=== PATIENT | female | born 1990 | race American Indian/Alaskan Native ===

== ENCOUNTER 2021-08-30 09:01 | Emergency (ER) | payer SELFPAY ==
[2021-08-30 09:46] VITALS: BP 132/74
--- NOTE | 2021-08-30 11:31 | Emergency Department Report ---
ED Extremity Problem HPI - General Chief complaint: Extremity Problem,Nontraumatic Stated complaint: PAIN UPPER ARM Time Seen by Provider: 08/30/21 11:13 Source: patient Mode of arrival: Ambulatory Limitations: Language Barrier - History of Present Illness Initial comments: 30-year-old black female with no past medical history presents to the emergency department for evaluation of intermittent left arm pain since January 2021. She states that she had her vaccine in January 2021 and since then she has pain to the area where the shot was given intermittently. She states that over the last 2 weeks pain has been more consistent. She states that pain is usually worse at night and the last couple nights is been uncomfortable and she has had a hard time sleeping. She states that she has not taken any medication for the pain. She denies chest pain, shortness of breath, fever, nausea, vomiting, diaphoresis. She states that it is just a dull ache in that 1 area when it is palpated laid on. MD Complaint: extremity pain Location: left, upper extremity History of Same: Yes -: No myalgia, No arthralgia, No fever, No associated dyspnea, No associated chest pain Severity scale (0 -10): 7 Quality: aching Consistency: intermittent, now resolved Worsens with: palpation Associated Symptoms: denies: chest pain, shortness of breath, fever, myalgias, arthralgias, rash - Related Data Previous Rx's Medication Instructions Recorded Last Taken Type Naproxen [Naprosyn] 500 mg PO BID #14 tab 08/30/21 Unknown Rx Allergies Allergy/AdvReac Type Severity Reaction Status Date / Time No Known Allergies Allergy Unverified 08/30/21 09:41 ED Review of Systems ROS: Stated complaint: PAIN UPPER ARM Other details as noted in HPI Comment: All other systems reviewed and negative Constitutional: denies: chills, fever Respiratory: denies: cough, shortness of breath Cardiovascular: denies: chest pain, palpitations Gastrointestinal: denies: abdominal pain, nausea, vomiting Musculoskeletal: denies: back pain Skin: denies: lesions ED Past Medical Hx - Medications Home Medications: Home Medications Medication Instructions Recorded Confirmed Last Taken Type Naproxen [Naprosyn] 500 mg PO BID #14 tab 08/30/21 Unknown Rx ED Physical Exam - General Limitations: Language Barrier General appearance: alert, in no apparent distress - Head Head exam: Present: atraumatic, normocephalic - Eye Eye exam: Present: normal appearance. Absent: conjunctival injection - Neck Neck exam: Present: normal inspection - Respiratory Respiratory exam: Present: normal lung sounds bilaterally. Absent: respiratory distress, wheezes, rales, rhonchi, stridor, chest wall tenderness - Cardiovascular Cardiovascular Exam: Present: regular rate, normal heart sounds - GI/Abdominal GI/Abdominal exam: Present: soft, normal bowel sounds. Absent: distended, tenderness, guarding, rigid - Extremities Exam Extremities exam: Present: normal inspection - Expanded Upper Extremity Exam Left Upper Arm exam: Present: normal inspection, tenderness (To one spot near deltoid of upper arm, no erythema or edema noted) Vascular: Present: normal capillary refill. Absent: vascular compromise, pulse deficit radial art - Back Exam Back exam: Present: normal inspection - Neurological Exam Neurological exam: Present: alert, oriented X3 - Psychiatric Psychiatric exam: Present: normal affect, normal mood - Skin Skin exam: Present: warm, dry, intact, normal color ED Course Vital Signs 08/30/21 09:42 Temperature 98.3 F Pulse Rate 68 Respiratory 18 Rate Blood Pressure 132/74 [Right] O2 Sat by Pulse 100 Oximetry ED Medical Decision Making - Medical Decision Making 30-year-old black female with no past medical history presents to the emergency department for evaluation of intermittent left arm pain since January 2021. She states that she had her vaccine in January 2021 and since then she has pain to the area where the shot was given intermittently. She states that over the last 2 weeks pain has been more consistent. She states that pain is usually worse at night and the last couple nights is been uncomfortable and she has had a hard time sleeping. She states that she has not taken any medication for the pain. She denies chest pain, shortness of breath, fever, nausea, vomiting, diaphoresis. She states that it is just a dull ache in that 1 area when it is palpated laid on. On exam patient noted to have minimal tenderness to area and left upper arm near the deltoid. No erythema edema or drainage noted. She states that it only hurts if I palpate the area. She continues to deny chest pain shortness of breath nausea vomiting and diaphoresis. She will be treated with 7-day course of naproxen for musculoskeletal pain and advised to follow-up with primary care provider if no improvement or worsening symptoms. All questions answered. Critical care attestation.: If time is entered above; I have spent that time in minutes in the direct care of this critically ill patient, excluding procedure time. ED Disposition Clinical Impression: Left arm pain Disposition: 01 HOME / SELF CARE / HOMELESS Is pt being admited?: No Does the pt Need Aspirin: No Condition: Stable Instructions: How to Use Cold Therapy, [id number], Musculoskeletal Pain Additional Instructions: Take medications as prescribed. Follow-up with primary care provider if no improvement or worsening symptoms. Return to the emergency department as needed. Prescriptions: Naproxen [Naprosyn] 500 mg PO BID #14 tab Referrals: CATHLEEN GARRIDO MD [Referring] - 3-5 Days Time of Disposition: 11:31
== END 2021-08-30 11:47 | disposition home or self-care (01) ==
LOC: ED 09:01
DX: M79.602 Pain in left arm (principal); Z79.899 Other long term (current) drug therapy
CPT/HCPCS: 99282